=== PATIENT | female | born 1965 | race Caucasian/White ===

== ENCOUNTER → 2021-04-28 | Outpatient (CLI) | payer BC | LOC: SJCVCIMAG 14:54 | PROVIDERS: ATTEND Internal Medicine | DX: I11.9 Hypertensive heart disease without heart failure (principal); R00.0 Tachycardia, unspecified; R00.2 Palpitations; Z79.899 Other long term (current) drug therapy ==

== ENCOUNTER → 2021-11-18 | Outpatient (CLI) | payer BC | LOC: SJCVCIMAG 08:02 | PROVIDERS: ATTEND Internal Medicine | DX: R00.2 Palpitations (principal); R55 Syncope and collapse; I10 Essential (primary) hypertension; G47.30 Sleep apnea, unspecified; Z79.899 Other long term (current) drug therapy ==

== ENCOUNTER → 2021-11-24 | Outpatient (CLI) | payer BC ==
[2021-11-24 16:08] VITALS: BP 134/87
--- NOTE | 2021-11-27 12:54 | LINQ ---
[facility] [address] [employer] [place] [address] LINQ PROCEDURE REPORT Name: PEDRO ANAND Room #: REG JERRIAlf Pena#: [id number] Admission: 11/24/21 Attend Phys: Meenakshi Buenrostro Discharge: Date of : 63 Report #: [id number] THIS REPORT FOR: cc: Yamile Farris DNP, Mary E. DNP Lammoglia, Francisco J. MD ~ APPROVED REPORT Study performed: 11/24/2021 15:27:33 Patient Status: Out-Patient Room #: Event Personnel: MEENAKSHI BUENROSTRO MD Exam: REVEAL LINQ INSERTION Indications: Syncope The patient is a 56 year-old female with a history of Syncope . Implanted Devices: Medtronic: Reveal LINQ; Model #: LNQ11; Serial #: [id number]; Use by: 2022-07-26 Procedure The patient underwent informed consent. We discussed the details of the procedure including the risks, which include, but not limited to bleeding, infection, vascular damage, cardiac perforation, and pneumothorax. The patient left chest was prepped and draped in usual sterile manner. 1% lidocaine a small wheal was raised. Utilizing a 25-gauge spinal needle the proposed tract was then anesthetized with same 1% lidocaine. An 11 blade was then used for a small incision. Using both blunt and sharp dissection a pocket was developed. Utilizing the deployment tool the device was deployed without difficulty. Palpation was performed to guarantee the absence of any significant discomfort. Subcutaneous tissue was closed with 2 simple interrupted 3-0 sutures and the skin was closed with 3-0 Vicryl in a subcuticular mode. Dermabond Steri-Strips 4 x 4 OpSite were utilized. Patient tolerated procedure well no complication Electrode Parameters P Wave: 0.6 Findings Estimated Blood Loss: 0 [facility] [address] [place] [address] [employer] PROCEDURE REPORT Name: PEDRO ANAND Room #: [facility]#: [id number] Admission: 11/24/21 Attend Phys: Meenakshi Pemberton Discharge: Date of : 63 Report #: [id number] Conclusion 1. Successful insertion of an implantable loop recorder Medtronic L IN Q Recommendations 1. Routine post insertion protocol <ELECTRONICALLY SIGNED> By: Meenakshi Buenrostro MD 11/27/21 1254 1254 1254 Meenakshi Buenrostro MD /INF
== END | disposition home or self-care (01) ==
LOC: CATH 08:31
PROVIDERS: ATTEND Internal Medicine
DX: R55 Syncope and collapse (principal)